=== PATIENT | male | born 1990 | race Caucasian/White ===

== ENCOUNTER 2018-03-01 01:31 | Outpatient (CLI) | payer OTHER | END 2018-03-01 20:02 | disposition short-term general hospital (02) | LOC: EEVIPCON 01:31 → MRD 01:31 | DX: K76.0 Fatty (change of) liver, not elsewhere classified (principal); N30.90 Cystitis, unspecified without hematuria; R59.0 Localized enlarged lymph nodes; J98.11 Atelectasis; K42.9 Umbilical hernia without obstruction or gangrene; R51 Headache | CPT/HCPCS: 70450; 74177; Q9967 ==